=== PATIENT | female | born 1980 | race Caucasian/White ===

== ENCOUNTER → 2016-12-21 | Outpatient (CLI) | payer OTHER ==
--- NOTE | 2016-12-22 03:02 | REP ---
Clinical: Multinodular goiter. Comparison: 09/30/2016. Technique: Real time castaneda scale and color evaluation using linear high frequency transducer. Findings: The thyroid gland is again noted to be asymmetrically enlarged (left greater than right) and diffusely heterogeneous similar to prior examination. Right thyroid lobe measures 6.1 x 2.5 x 2.2 cm and includes a large dominant heterogeneous nodule measuring 2.7 x 1.5 x 1.7 cm along with smaller nonspecific subcentimeter hypoechoic nodules. Left thyroid lobe measures 7.4 x 4.7 x 3.1 cm and appears diffusely heterogeneous and demonstrates innumerable complex nodules and cysts of mixed echogenicity. Specifically, mid/upper pole diffusely heterogeneous nodule measures 2.2 x 2.1 x 2.9 cm, two heterogeneous mid pole nodules measure 2.3 x 3.1 x 2.2 cm and 1.5 x 0.7 x 1.4 cm, and a larger complex lower pole nodule measures 2.5 x 3.0 x 1.7 cm which includes smaller hypoechoic areas and 9 mm calcification with posterior shadowing. Impression: Diffusely heterogeneous, asymmetric multinodular goiter as described above similar to prior examination. Correlation with nuclear medicine imaging and thyroid function tests may be warranted. Signed by Andi Tavarez MD 12/22/2016 02:53 A
== END ==
LOC: M RAD 10:04
PROVIDERS: ATTEND Internal Medicine Endocrinology, Diabetes & Metabolism
DX: E04.9 Nontoxic goiter, unspecified (principal)

== ENCOUNTER → 2020-09-09 | Outpatient (CLI) | payer OTHER ==
--- NOTE | 2020-09-09 11:54 | REP ---
INDICATION: GOITER COMPARISON: 12/21/2016 TECHNIQUE: Duenas scale and color evaluation of the thyroid gland using the linear high frequency transducer. FINDINGS: The thyroid gland is heterogeneous, enlarged and demonstrates multiple complex nodules essentially stable compared to prior examination when allowing for variation in technique. Right lobe measures 6.0 x 2.4 x 2.1 cm and includes new 8 mm midpole cyst and stable 2.6 x 1.4 x 1.6 cm midpole heterogeneous complex solid nodule. Left lobe measures 7.3 x 4.9 x 3.7 cm and is comprised of multiple complex predominately solid nodules essentially unchanged in appearance measuring 2.0 x 2.3 x 1.5 cm, 1.5 x 1.0 x 1.7 cm, 2.4 x 2.2 x 2.0 cm, and 2.3 x 3.1 x 1.9 cm. IMPRESSION: Multinodular goiter relatively similar to prior examinations. <Electronically signed by Andi Tavarez > 09/09/20 [id number]
== END ==
LOC: M RAD 11:13
PROVIDERS: ATTEND Internal Medicine
DX: E04.1 Nontoxic single thyroid nodule (principal)

== ENCOUNTER → 2021-10-21 | Outpatient (CLI) | payer OTHER | LOC: M RAD 11:45 | PROVIDERS: ATTEND Internal Medicine Endocrinology, Diabetes & Metabolism | DX: E04.1 Nontoxic single thyroid nodule (principal) ==

== ENCOUNTER → 2023-02-03 | Outpatient (CLI) | payer OTHER ==
[2023-02-03 14:02] LABS: PROLACTIN 12.12 NG/ML; THYROID STIMULATING HORMONE 0.625 uIU/ML (0.55-4.78)
[2023-02-03 14:03] LABS: FREE T4 1.24 NG/DL (0.89-1.76)
== END ==
LOC: M PLALAB 11:22
PROVIDERS: ATTEND Nurse Practitioner Family
DX: Z12.4 Encounter for screening for malignant neoplasm of cervix (principal); R87.615 Unsatisfactory cytologic smear of cervix; N64.3 Galactorrhea not associated with childbirth
CPT/HCPCS: 36415; 84146; 84439; 84443; 87624; G0123

== ENCOUNTER → 2023-06-14 | Outpatient (REF) | payer OTHER | LOC: M SFHCWAGY 10:19 | PROVIDERS: ATTEND Nurse Practitioner Family | DX: Z12.4 Encounter for screening for malignant neoplasm of cervix (principal); R87.615 Unsatisfactory cytologic smear of cervix ==

== ENCOUNTER → 2023-07-06 | Outpatient (CLI) | payer OTHER | LOC: M WHC 14:56 | PROVIDERS: ATTEND Nurse Practitioner Family | DX: N64.3 Galactorrhea not associated with childbirth (principal); N63.10 Unspecified lump in the right breast, unspecified quadrant ==

== ENCOUNTER → 2024-10-02 | Outpatient (REF) | payer OTHER | LOC: M LAB REF 18:53 | PROVIDERS: ATTEND Student in an Organized Health Care Education/Training Program | DX: R30.0 Dysuria (principal) ==

== ENCOUNTER → 2024-11-07 | Outpatient (CLI) | payer OTHER | LOC: M WHC 14:51 | PROVIDERS: ATTEND Nurse Practitioner Family | DX: Z12.31 Encounter for screening mammogram for malignant neoplasm of breast (principal); N61.1 Abscess of the breast and nipple; N64.3 Galactorrhea not associated with childbirth; R92.333 Mammographic heterogeneous density, bilateral breasts | CPT/HCPCS: 76642; 77066; G0279 ==

== ENCOUNTER → 2024-11-22 | Outpatient (CLI) | payer OTHER ==
[2024-11-22 07:35] VITALS: TEMP 98.7
[2024-11-22 08:45] VITALS: BP 138/90; O2SAT 98
== END ==
LOC: M WHCPRO 07:25
PROVIDERS: ATTEND Nurse Practitioner Family
DX: N63.23 Unspecified lump in the left breast, lower outer quadrant (principal); N61.1 Abscess of the breast and nipple; N64.3 Galactorrhea not associated with childbirth